=== PATIENT | male | born 1990 | race Caucasian/White ===

== ENCOUNTER 2016-06-15 09:48 | Emergency (ER) | payer SELFPAY ==
[2016-06-15 10:02] VITALS: TEMP 98.6
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
[2016-06-15 11:11] VITALS: BP 114/80; O2SAT 98
== END 2016-06-15 11:11 | disposition home or self-care (01) ==
LOC: ER 09:48
DX: S01.81XA Laceration without foreign body of other part of head, initial encounter (principal); S01.111A Laceration without foreign body of right eyelid and periocular area, initial encounter; Y09 Assault by unspecified means; Y92.009 Unspecified place in unspecified non-institutional (private) residence as the place of occurrence of the external cause

== ENCOUNTER 2016-08-17 08:54 | Emergency (ER) | payer SELFPAY ==
[2016-08-17 09:06] VITALS: TEMP 97.9
--- NOTE | 2016-08-17 09:18 | ED.PDOC ---
History of Present Illness - General Chief Complaint: Abdominal Pain Stated Complaint: abdominal pain Time Seen by Provider: 08/17/16 09:05 Source: patient Exam Limitations: no limitations - History of Present Illness Initial Comments: pt here with periumbilical abd pain since last night. no obstructive symptoms and no gi bleed. no rebound or peritoneal signs. no fever. no diarrhea. no n /vd. Timing/Duration: 24 hours Severity: moderate Improving Factors: immobilization Worsening Factors: movement Associated Symptoms: denies symptoms Allergies/Adverse Reactions: Allergies NO KNOWN ALLERGY Allergy (Verified 06/15/16 10:02) Home Medications: Ambulatory Orders NK [NK] 06/15/16 Review of Systems - Review of Systems Constitutional: States: no symptoms reported EENTM: States: no symptoms reported Respiratory: States: no symptoms reported Cardiology: States: no symptoms reported Gastrointestinal/Abdominal: States: see HPI Genitourinary: States: no symptoms reported Musculoskeletal: States: no symptoms reported Skin: States: no symptoms reported Neurological: States: no symptoms reported Endocrine: States: no symptoms reported All other Systems: No Change from Baseline Past Medical History (General) - Patient Medical History Hx Seizures: No Hx Stroke: No Hx Dementia: No Hx Asthma: No Hx of COPD: No Hx Cardiac Disorders: No Hx Congestive Heart Failure: No Hx Pacemaker: No Hx Hypertension: No Hx Thyroid Disease: No Hx Diabetes: No Hx Gastroesophageal Reflux: No Hx Renal Disease: No Hx Cancer: No Hx of HIV: No Hx Hepatitis C: No Hx MRSA: No Surgical History: no surgical history - Vaccination History Hx Tetanus, Diphtheria Vaccination: No Hx Influenza Vaccination: No Hx Pneumococcal Vaccination: No - Social History Hx Tobacco Use: Yes Hx Alcohol Use: No Hx Substance Use: No Hx Substance Use Treatment: No Hx Depression: No - Female History Patient : No Family Medical History - Family History Father Family History: No Known Living Status: Still Living Physical Exam - Physical Exam General Appearance: Alert, No apparent distress Eye Exam: bilateral normal Ears, Nose, Throat: hearing grossly normal, normal ENT inspection, normal pharynx Neck: full range of motion Respiratory: no respiratory distress, no accessory muscle use Cardiovascular/Chest: normal peripheral pulses, regular rate, rhythm, no edema Peripheral Pulses: radial,right: 2+, radial,left: 2+, dorsalis pedis,right: 2+, dorsalis pedis,left: 2+, posterior tibialis,right: 2+, posterior tibialis,left: 2+ Gastrointestinal/Abdominal: normal bowel sounds, soft, other - umbilical hernia palpable, reduced. uncomfortable to palpation. pain reduced after reduction. Rectal Exam: deferred Back Exam: normal inspection, no CVA tenderness, no vertebral tenderness Extremity: normal range of motion, non-tender, normal inspection, no pedal edema , normal capillary refill Neurologic: alert, normal mood/affect, oriented x 3 Skin Exam: normal color Comments: Vital Signs - 24 hr 08/17/16 09:01 Temperature 97.9 F Pulse Rate [ 75 Left Brachial] Respiratory 16 Rate Blood Pressure 130/87 [Left Arm] O2 Sat by Pulse 96 Oximetry Progress - Progress Progress: 08/17/16 09:19 pt is a 25 year old cm with pain from an umbilical hernia, no obstructive symptoms and no peritoneal signs. hernia reduced. needs to see general surgeon next week to get it fixed. er warnings for any worsening. he has been shown how to reduce it if it recurs. avoid straining to reduce intrabdominal pressure until fixed. Departure - Departure Clinical Impression: Umbilical hernia without obstruction and without gangrene Disposition: Discharge to Home or Self Care Condition: Fair Departure Forms: ED Discharge - Pt. Copy, Patient Portal Self Enrollment Instructions: DI for Abdominal Pain-Adult Diet: regular diet Activity: increase activity as tolerated Home Medications: Ambulatory Orders NK [NK] 06/15/16 Additional Instructions: pt is a 25 year old cm with pain from an umbilical hernia, no obstructive symptoms and no peritoneal signs. hernia reduced. needs to see general surgeon next week to get it fixed. er warnings for any worsening. he has been shown how to reduce it if it recurs. avoid straining to reduce intrabdominal pressure until fixed.
[2016-08-17 09:51] VITALS: BP 143/96; O2SAT 98
== END 2016-08-17 09:41 | disposition home or self-care (01) ==
LOC: ER 08:54
DX: K42.9 Umbilical hernia without obstruction or gangrene (principal); Z87.891 Personal history of nicotine dependence

== ENCOUNTER 2018-09-20 14:44 | Emergency (ER) | payer SELFPAY ==
--- NOTE | 2018-09-20 15:48 | ED.PDOC ---
History of Present Illness - General Chief Complaint: ENT Problem Stated Complaint: right ear pain Time Seen by Provider: 09/20/18 15:40 Source: patient - History of Present Illness Initial Comments: Patient presents with pain in the right ear for 4 days and swelling in the post- auricular area for 3 days. He has had otitis media before but says that the swelling is a new feature. No ST/cough. No other complaints. Timing/Duration: other - 4 days Severity: moderate Improving Factors: nothing Worsening Factors: nothing Associated Symptoms: denies symptoms Allergies/Adverse Reactions: Allergies NO KNOWN ALLERGY Allergy (Verified 06/15/16 10:02) Home Medications: Ambulatory Orders Amoxicillin & Pot Clavulanate [Augmentin Tab] 875 mg PO BID #19 tab 09/20/18 Review of Systems - Review of Systems Constitutional: States: no symptoms reported EENTM: States: see HPI Respiratory: States: no symptoms reported Cardiology: States: no symptoms reported Gastrointestinal/Abdominal: States: no symptoms reported Genitourinary: States: no symptoms reported Musculoskeletal: States: no symptoms reported Skin: States: no symptoms reported Neurological: States: no symptoms reported Endocrine: States: no symptoms reported Hematologic/Lymphatic: States: no symptoms reported Past Medical History (General) - Patient Medical History Hx Seizures: No Hx Stroke: No Hx Dementia: No Hx Asthma: No Hx of COPD: No Hx Cardiac Disorders: No Hx Congestive Heart Failure: No Hx Pacemaker: No Hx Hypertension: No Hx Thyroid Disease: No Hx Diabetes: No Hx Gastroesophageal Reflux: No Hx Renal Disease: No Hx Cancer: No Hx of HIV: No Hx Hepatitis C: No Hx MRSA: No - Vaccination History Hx Tetanus, Diphtheria Vaccination: No Hx Influenza Vaccination: No Hx Pneumococcal Vaccination: No - Social History Hx Tobacco Use: Yes Hx Alcohol Use: No Hx Substance Use: No Hx Substance Use Treatment: No Hx Depression: No - Female History Patient : No Family Medical History - Family History Father Family History: No Known Living Status: Still Living Physical Exam - Physical Exam General Appearance: Alert Eye Exam: bilateral normal Ears, Nose, Throat: normal pharynx, other - Right TM opaque with mild erythemia + post-auricular LAD, TTP, 1 cm, mobile, rubbery in consistency Neck: non-tender, full range of motion, supple Respiratory: lungs clear, normal breath sounds Cardiovascular/Chest: normal peripheral pulses, regular rate, rhythm Gastrointestinal/Abdominal: normal bowel sounds, non tender, soft Progress - Progress Progress: 09/20/18 15:49 Augmentin 875 mg po x one given in the E.D. RX for 10 days given. Care instructions given. E.R. warnings given. Questions were elicited and answered. Patient voiced understanding and agreement with the plan. Departure - Departure Clinical Impression: Otitis media Disposition: Discharge to Home or Self Care Condition: Good Departure Forms: ED Discharge - Pt. Copy, Patient Portal Self Enrollment Instructions: Ear Infections (Otitis Media) (DC) Diet: resume usual diet Activity: increase activity as tolerated Prescriptions: Amoxicillin & Pot Clavulanate [Augmentin Tab] 875 mg PO BID #19 tab Home Medications: Ambulatory Orders Amoxicillin & Pot Clavulanate [Augmentin Tab] 875 mg PO BID #19 tab 09/20/18 Additional Instructions: Take medication as prescribed. Ibuprofen for pain relief. See your regular doctor for a recheck of the ear in 7-10 days. Return to the E.R. for temperature over 100.3 or worsening symptoms.
[2018-09-20] MEDS ORDERED: AMOXICILLIN & POT CLAVULANATE 875 MG TAB PO ONE (15:49)
[2018-09-20 16:07] VITALS: BP 152/90; TEMP 98.9; O2SAT 97
== END 2018-09-20 16:23 | disposition home or self-care (01) ==
LOC: ER 14:44
DX: H66.91 Otitis media, unspecified, right ear (principal); Z87.891 Personal history of nicotine dependence

== ENCOUNTER 2020-02-11 16:04 | Emergency (ER) | payer SELFPAY ==
[2020-02-11] MEDS ORDERED: AZITHROMYCIN 250 MG TAB PO ONE (16:32)
[2020-02-11 16:33] VITALS: O2SAT 98
[2020-02-11] MEDS ORDERED: ONDANSETRON ODT 8 MG TAB SL ONE (16:33)
--- NOTE | 2020-02-11 16:52 | ED.PDOC ---
History of Present Illness - General Chief Complaint: General Stated Complaint: Believes he has Gonorrhea Time Seen by Provider: 02/11/20 16:31 Source: patient, RN notes reviewed, Vital Signs reviewed Exam Limitations: no limitations - History of Present Illness Initial Comments: Patient is a 29-year-old white male who presents with complaints of penile discharge and dysuria. This is been ongoing for the last 2 to 3 days. It is worsening. Pain is moderate in intensity. There is no radiation of the pain. Patient had unprotected sex about 2 weeks ago. Patient's partner was just diagnosed with gonorrhea. Patient is sexually active with only one partner. Timing/Duration: other - 2-3 days Severity: moderate Improving Factors: nothing Worsening Factors: other - urination Associated Symptoms: denies symptoms Allergies/Adverse Reactions: Allergies NO KNOWN ALLERGY Allergy (Verified 02/11/20 16:33) Home Medications: Ambulatory Orders Amoxicillin & Pot Clavulanate [Augmentin Tab] 875 mg PO BID #19 tab 09/20/18 Cephalexin Monohydrate [Keflex] 500 mg PO QID #28 cap 02/11/20 Review of Systems - Review of Systems Constitutional: States: no symptoms reported, see HPI. Denies: chills, fever, malaise, weakness EENTM: States: no symptoms reported. Denies: eye pain, blurred vision, double vision Respiratory: States: no symptoms reported. Denies: cough, short of breath, stridor, wheezing Cardiology: States: no symptoms reported. Denies: chest pain, palpitations, syncope Gastrointestinal/Abdominal: States: no symptoms reported. Denies: constipation, diarrhea, nausea, vomiting Genitourinary: States: see HPI, discharge - milky colored. , dysuria. Denies: frequency, hematuria Musculoskeletal: States: no symptoms reported. Denies: back pain, joint pain, joint swelling, neck pain Skin: States: no symptoms reported. Denies: change in color, rash Neurological: States: no symptoms reported. Denies: headache, tingling, tremors, weakness Endocrine: States: no symptoms reported. Denies: increased hunger, increased thirst, increased urine Hematologic/Lymphatic: States: no symptoms reported. Denies: blood clots, easy bleeding All other Systems: Reviewed and Negative Past Medical History (General) - Patient Medical History Hx Seizures: No Hx Stroke: No Hx Dementia: No Hx Asthma: No Hx of COPD: No Hx Cardiac Disorders: No Hx Congestive Heart Failure: No Hx Pacemaker: No Hx Hypertension: No Hx Thyroid Disease: No Hx Diabetes: No Hx Gastroesophageal Reflux: No Hx Renal Disease: No Hx Cancer: No Hx of HIV: No Hx Hepatitis C: No Hx MRSA: No MRSA Source:: Wound Surgical History: no surgical history - Vaccination History Hx Tetanus, Diphtheria Vaccination: No Hx Influenza Vaccination: No Hx Pneumococcal Vaccination: No - Social History Hx Tobacco Use: Yes Hx Alcohol Use: Yes Hx Substance Use: No Hx Substance Use Treatment: No Hx Depression: No - Female History Patient is a Female of Child Bearing Age (10 -59 yrs old): No Patient : No Family Medical History - Family History Father Family History: No Known Living Status: Still Living Physical Exam - Physical Exam General Appearance: Alert, Anxious, Well Developed, Well Groomed, Well Hydrated, Well Nourished Eye Exam: bilateral normal Ears, Nose, Throat: hearing grossly normal, normal ENT inspection, normal pharynx Neck: non-tender, full range of motion, supple Respiratory: chest non-tender, lungs clear, normal breath sounds, no respiratory distress, no accessory muscle use Cardiovascular/Chest: normal peripheral pulses, no edema, no gallop, no JVD, no murmur, tachycardia Peripheral Pulses: radial,right: 2+, radial,left: 2+ Gastrointestinal/Abdominal: normal bowel sounds, non tender, soft Rectal Exam: deferred, other - Pt defers rectal/gu exam. Pt wants to give us a urine sample and be tx for his STD. Pt related yellow/white penile discharge. 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 02/11/20 17:00 Urine GC/committee is pending. UA is pending. Will dispel patient once the urinalysis is returned. I will treat the patient for gonorrhea and chlamydia as his partner has just tested positive for gonorrhea. 02/11/20 17:59 Urinalysis shows possible infection. We will treat him with Keflex. Patient is already been treated for gonorrhea and chlamydia. Patient to follow-up with PCP in 3 to 5 days for test results. Oliver Forrest M.D. #[id number] - Results/Orders Results/Orders: GC Chlamydia TMA urine is pending. 02/11/20 17:31 URINE CULTURE W/COLONY COUNT Stat GC CHLAMYDIA RNA,TMA Stat Laboratory Results - last 24 hr 02/11/20 17:31 Urine Color Yellow Urine Appearance Clear Urine pH 6.0 Ur Specific Capac >= 1.030 Urine Protein 30 Urine Glucose (UA) Negative Urine Ketones Negative Urine Blood Trace-intact H Urine Nitrite Negative Urine Bilirubin Small H Urine Urobilinogen 2.0 H Ur Leukocyte Esterase Large H Urine RBC 1-3 Urine WBC >50 H Ur Epithelial Cells 0 Urine Bacteria 1+ Vital Signs 02/11/20 02/11/20 16:25 16:26 Temperature 99 F Pulse Rate [ 104 H 104 H Pulse ox] Respiratory 16 Rate Blood Pressure 153/104 [L arm] O2 Sat by Pulse 98 Oximetry Departure - Departure Clinical Impression: STI (sexually transmitted infection) UTI (urinary tract infection) Qualifiers: Urinary tract infection type: acute cystitis Hematuria presence: without hematuria Qualified Code(s): N30.00 - Acute cystitis without hematuria Time of Disposition: 18:00 Disposition: Discharge to Home or Self Care Departure Forms: ED Discharge - Pt. Copy, Patient Portal Self Enrollment Instructions: Urinary Tract Infection, Adult (DC), Screening for Sexually Transmitted Infections Diet: resume usual diet Activity: increase activity as tolerated Prescriptions: Cephalexin Monohydrate [Keflex] 500 mg PO QID #28 cap Home Medications: Ambulatory Orders Amoxicillin & Pot Clavulanate [Augmentin Tab] 875 mg PO BID #19 tab 09/20/18 Cephalexin Monohydrate [Keflex] 500 mg PO QID #28 cap 02/11/20
[2020-02-11] MEDS ORDERED: LIDOCAINE 1% 2 ML VIAL INJ ONE (17:15)
[2020-02-11 18:15] VITALS: BP 127/93; TEMP 98.6
== END 2020-02-11 18:15 | disposition home or self-care (01) ==
LOC: ER 16:04
DX: N30.00 Acute cystitis without hematuria (principal); Z20.2 Contact with and (suspected) exposure to infections with a predominantly sexual mode of transmission
CPT/HCPCS: 81001; 87086; 87491; 87591; J0696; Q0144